=== PATIENT | female | born 1975 ===

== ENCOUNTER 2016-10-25 09:26 | Emergency (ER) | payer MEDICAID ==
[2016-10-25 09:34] VITALS: BMI 30.2
[2016-10-25 09:36] VITALS: BP 144/97; PULSE 97; RESP 19; TEMP 99; O2SAT 100
[2016-10-25] MEDS ORDERED: Sodium Chloride 0.9% 500 ML IV SCH (10:45)
[2016-10-25 11:31] LABS: ALB/GLOB RATIO 1.2 (1.0-2.1); ALKALINE PHOSPHATASE 59 U/L (38-126); ALT/SGPT 26 U/L (9-52); AMYLASE 70 U/L (30-110); AST/SGOT 27 U/L (14-36); BILIRUBIN,TOTAL 0.7 mg/dl (0.2-1.3); BLOOD UREA NITROGEN 11 mg/dl (7-17); CARBON DIOXIDE 24 mmol/L (22-30); CHLORIDE 104 mmol/L (98-107); GFR AFRICAN-AMERICAN > 60; GLUCOSE,RANDOM 91 mg/dL (65-105); LIPASE 28 U/L (23-300); POTASSIUM 4.2 MMOL/L (3.6-5.0); SODIUM 138 mmol/l (132-148)
[2016-10-25 11:37] LABS: HEMATOCRIT 35.7 % (34.0-47.0); MEAN CELL VOLUME 85.3 fl (81.0-99.0); MEAN CORPUSCULAR HEMOGLOBIN 28.2 pg (27.0-31.0); RED CELL DISTRIBUTION WIDTH 15.3 % (11.5-14.5); WHITE BLOOD COUNT 9.7 K/uL (4.8-10.8)
--- NOTE | 2016-10-25 11:50 | ED PDOC ---
HPI: Abdomen Chief Complaint (Provider): Abdominal Pain History Per: Patient History/Exam Limitations: no limitations Onset/Duration Of Symptoms: Days Outside of [place] travel?: No Current Symptoms Are (Timing): Still Present Context: Food Severity: Moderate Pain Scale Rating Of: 3 Location Of Pain/Discomfort: Epigastric Quality Of Discomfort: Burning Associated Symptoms: Nausea. denies: Vomiting Exacerbating Factors: Food Alleviating Factors: None Last Bowel Movement: Yesterday Abnormal Vaginal Bleeding: No <Matias Seymour - Last Filed: 10/25/16 12:31> <Terrie Lobato - Last Filed: 10/25/16 12:38> Time Seen by Provider: 10/25/16 09:57 Chief Complaint (Nursing): Abdominal Pain Additional Complaint(s): Pt. here today for evaluation of abdominal pain localized to epigastric area. Pain started yesterday afternoon at approximately 2pm after the patient had a meal consisting of meat. Pt. reports pain was 7/10, sharp, and not radiating. Pt. states pain persisted in the evening and decided to take her pain medication for her back which she cannot recall the name of at this time. Pt. reports pain improved a little bit but when she woke up this morning the pain was still present and drank orange juice which did not help, subsequently decided to come to the E.R. because of worsening and persistent pain after dropping her son off at school. On ROS, pt. denies any headache, chest pain, dyspnea, hemoptysis, hematemesis, melena, fever, chills, night sweats, dysuria, hematuria, or vaginal bleeding. Pt. reports LMP on October 17 to October 23. Pt. Pharmacy [facility] called and patient currently on Ventolin, Voltaren 75mg, Cyclobenzaprine 10mg, Advair discus 250, and Lipitor 10mg. Pt. at this time reports pain level is 3. (Matias Seymour) Supervising Attending Note <Matias Seymour - Last Filed: 10/25/16 12:31> - Supervising Attending Note The Documented history was done by the: Physician [employer] Form Placing Supervisor The documented physical exam was done by the: Physician Steel Pan Form Placing Supervisor The documented procedures were done by the: Physician Steel Pan Form Placing Supervisor - Attestation: I have personally seen and examined this patient.: Yes I have fully participated in the care of the patient.: Yes I have reviewed all pertinent clinical information: Yes <Terrie Lobato - Last Filed: 10/25/16 12:38> - Notes: Notes:: 41 yo female with recurrent epigastric pain. - labs - IVF - Pepcid Feels better after med, nontender exam. (Terrie Lobato) Past Medical History - Medical History PMH: Asthma, Hypercholesterolemia - Surgical History Surgical History: No Surg Hx - Family History Family History: States: Unknown Family Hx, Hypertension - Living Arrangements Living Arrangements: With Family - Social History Current smoker - smoking cessation education provided: No Ex-Smoker (has not smoked in the last 12 months): No Alcohol: Social Drugs: Denies - Immunization History Hx Tetanus Toxoid Vaccination: No Hx Influenza Vaccination: No Hx Pneumococcal Vaccination: No <LionMatias - Last Filed: 10/25/16 12:31> <Terrie Lobato - Last Filed: 10/25/16 12:38> Vital Signs: Last Vital Signs Temp 99 F 10/25/16 10:15 Pulse 97 H 10/25/16 10:15 Resp 19 10/25/16 10:15 BP 144/97 H 10/25/16 10:15 Pulse Ox 100 10/25/16 12:31 - Home Medications Home Medications: Ambulatory Orders Medication Instructions Recorded Albuterol 2 puff PO PRN PRN 05/25/13 Naproxen [Naprosyn] 1 tab PO BID PRN #25 tab 02/25/14 Albuterol 0.083% [Albuterol 3 ml IH Q6 PRN 11/14/14 Sulfate 3 Ml] Cyclobenzaprine HCl [Flexeril] 10 mg PO Q8 #15 tab 11/14/14 Ibuprofen [Motrin] 600 mg PO Q6 #30 tab 11/14/14 Famotidine [Pepcid] 20 mg PO HS #30 tab 02/07/15 Ibuprofen [Motrin] 600 mg PO Q6H #20 tab 02/07/15 Naproxen [Naprosyn Tab] 500 mg PO BID PRN #20 tab 05/27/15 Naproxen [Naprosyn] 500 mg PO Q12H #20 tab 07/28/15 Ciprofloxacin HCl [Cipro] 500 mg PO BID #14 tablet 12/22/15 Metronidazole [Flagyl] 500 mg PO TID #21 tablet 12/22/15 Albuterol HFA [Ventolin HFA 90 2 puff IH Q4H PRN #1 inh 03/03/16 mcg/actuation (8 g)] Omeprazole Magnesium [Prilosec Otc] 20 mg PO DAILY #30 tcp 03/03/16 Ondansetron ODT [Zofran ODT] 1 odt PO Q6 PRN #30 odt 03/03/16 Ibuprofen [Motrin Tab] 600 mg PO Q6 PRN #15 tab 05/22/16 Ondansetron [Zofran] 4 mg PO Q6H PRN #10 tab 05/22/16 Famotidine [Pepcid] 20 mg PO BID #10 tab 08/06/16 Famotidine [Pepcid] 20 mg PO BID #20 tab 10/25/16 - Allergies Allergies/Adverse Reactions: Allergies Allergy/AdvReac Type Severity Reaction Status Date / Time No Known Allergies Allergy Verified 10/25/16 10:15 Review of Systems Gastrointestinal: Positive for: Abdominal Pain (See HPI) <Matias Seymour - Last Filed: 10/25/16 12:31> Physical Exam - Reviewed Vital Signs Reviewed: Yes - Physical Exam Appears: Positive for: Non-toxic, No Acute Distress, Uncomfortable Eye Exam: Positive for: Normal appearance. Negative for: Scleral icterus Cardiovascular/Chest: Positive for: Regular Rate, Rhythm. Negative for: Murmur Respiratory: Positive for: Normal Breath Sounds. Negative for: Respiratory Distress Gastrointestinal/Abdominal: Positive for: Soft, Tenderness (+Epigastric Tenderness) Back: Negative for: L CVA Tenderness, R CVA Tenderness Extremity: Negative for: Tenderness, Pedal Edema <Matias Seymour - Last Filed: 10/25/16 12:31> - Laboratory Results Result Diagrams: 10/25/16 11:13 10/25/16 11:13 - ECG ECG: Positive for: Viewed By Me (Normal Sinus Rhythm) O2 Sat by Pulse Oximetry: 100 - Progress Re-evaluation Time: 12:00 Condition: Improved <Matias Seymour - Last Filed: 10/25/16 12:31> - Laboratory Results Result Diagrams: 10/25/16 11:13 10/25/16 11:13 <Terrie Lobato - Last Filed: 10/25/16 12:38> - Progress ED Course And Treament: Patient given I.V. Fluids and Pepcid 20mg I.V. (Matias Seymour) Medical Decision Making <Rik Seymourf - Last Filed: 10/25/16 12:31> <Terrie Lobato - Last Filed: 10/25/16 12:38> Medical Decision Makin y.o. female with epigastric pain which she has had in the past greatly improved with I.V. Fluids and I.V. Pepcid now significantly improved with normal labs and stable for discharge to home with follow up with PMD Dr. Eduin malloy and referal to GI Dr. Pickard. Pt. given E.R. precautions to return of pain returns or worsens. (Matias Seymour) Disposition - Patient ED Disposition Is Patient to be Admitted: No Discussed With : Terrie Lobato - Disposition Disposition: Routine/Home Disposition Time: 12:00 <Matias Seymour - Last Filed: 10/25/16 12:31> <Terrie Lobato - Last Filed: 10/25/16 12:38> - Clinical Impression Clinical Impression: Gastritis - Disposition Referrals: Dionte Pickard MD [Staff Provider] - Condition: GOOD Prescriptions: Famotidine [Pepcid] 20 mg PO BID #20 tab Instructions: Gastritis (ED)
--- NOTE | 2016-10-26 12:52 | CARD ---
APPROVED REPORT EKG Measurement Heart [id number] <Conclusion> Normal sinus rhythm Normal ECG
== END 2016-10-25 12:39 | disposition home or self-care (01) ==
LOC: H.ER 09:26
DX: K29.70 Gastritis, unspecified, without bleeding (principal); E78.00 Pure hypercholesterolemia, unspecified; J45.909 Unspecified asthma, uncomplicated; Z87.891 Personal history of nicotine dependence

== ENCOUNTER 2017-06-18 09:23 | Emergency (ER) | payer MEDICAID ==
[2017-06-18 09:24] VITALS: BMI 30.2
[2017-06-18 09:39] VITALS: RESP 21; O2SAT 98
[2017-06-18] MEDS ORDERED: Sodium Chloride 0.9% 1,000 ML IV STA (11:24)
[2017-06-18 12:45] LABS: BASO # 0.1 K/uL (0.0-0.2); BASO % 0.7 % (0.0-2.0); EOS # 0.2 K/uL (0.0-0.7); EOS % 1.8 % (0.0-4.0); HEMOGLOBIN 12.3 g/dL (12.0-16.0); LYMPH # 2.5 K/uL (1.0-4.3); LYMPH % 24.1 % (20.0-40.0); MEAN CELL VOLUME 83.8 fl (81.0-99.0); MEAN CORPUSCULAR HEMOGLOBIN 26.9 pg (27.0-31.0); MEAN CORPUSCULAR HGB CONC 32.1 g/dL (33.0-37.0); MEAN PLATELET VOLUME 8.5 fl (7.2-11.7); MONO # 0.7 K/uL (0.0-0.8); MONO % 6.3 % (0.0-10.0); NEUT % 67.1 % (50.0-75.0); NRBC % 0.1 % (0.0-0.0); RBC 4.56 Mil/uL (3.80-5.20); RED CELL DISTRIBUTION WIDTH 16.2 % (11.5-14.5); WHITE BLOOD COUNT 10.4 K/uL (4.8-10.8)
[2017-06-18 12:47] LABS: ALBUMIN 4.5 g/dL (3.5-5.0); ALT/SGPT 47 U/L (9-52); AST/SGOT 32 U/L (14-36); BLOOD UREA NITROGEN 12 mg/dl (7-17); CALCIUM 9.3 mg/dL (8.4-10.2); GFR AFRICAN-AMERICAN > 60; GFR NON-AFRICAN AMERICAN > 60; LIPASE 48 U/L (23-300)
[2017-06-18 12:52] LABS: SQUAMOUS EPITHIAL 5 /hpf (0-5); URINE BACTERIA RARE (<OCC); URINE BILIRUBIN NEGATIVE (NEGATIVE); URINE BLOOD NEGATIVE (NEGATIVE); URINE CLARITY SLIGHTY-CLOUDY (Clear); URINE COLOR YELLOW (YELLOW); URINE GLUCOSE (UA) NEG (Normal); URINE LEUKOCYTE ESTERASE TRACE Leu/uL (Negative); URINE NITRATE NEGATIVE (NEGATIVE); URINE PROTEIN NEGATIVE (NEGATIVE); URINE UROBILINOGEN 0.2-1.0 mg/dL (0.2-1.0)
[2017-06-18 12:56] LABS: ALB/GLOB RATIO 1.2 (1.0-2.1)
--- NOTE | 2017-06-18 13:26 | US ---
HISTORY: epigastric abdominal pain COMPARISON: 08/06/2016 TECHNIQUE: Sonographic evaluation of the abdomen. FINDINGS: LIVER: Measures 16.2 cm. Borderline increased echogenicity of the liver parenchyma. No mass. No intrahepatic bile duct dilatation. GALLBLADDER: Unremarkable. No gallstones. COMMON BILE DUCT: Measures 2.7 mm. No stones. No dilatation. PANCREAS: Unremarkable as visualized. No mass. No ductal dilatation. RIGHT KIDNEY: Measures 9.7 x 6.1 x 4.2cm. Normal echogenicity. No calculus, mass, or hydronephrosis. LEFT KIDNEY: Measures 9.5 x 4.8 x 5.1cm. Normal echogenicity. No calculus, mass, or hydronephrosis. SPLEEN: Normal in size and contour. No mass. AORTA: No aneurysmal dilatation. IVC: Unremarkable. OTHER FINDINGS: None. IMPRESSION: Recurrent liver mid size is greater than that before this could still be technical. Nevertheless no hepatomegaly threshold reached. Overall echogenicity appears borderline increased. Minimal fatty infiltration not excluded. No dilated ducts are liver masses suggested Unremarkable appearing gallbladder and pancreas
--- NOTE | 2017-06-18 13:47 | ED PDOC ---
HPI: General Adult Time Seen by Provider: 06/18/17 10:39 Chief Complaint (Nursing): Abdominal Pain History Per: Patient Additional Complaint(s): Pt. states for the past week she's had abdominal pain associated with nausea and multiple episode of non-bloody vomiting. Further states she has a hx of gastritis. Pt. was seen by Dr. Pickard earlier today and was prescribed Pepcid without relief. Denies fever, chest pain, hematemesis, previous abdominal surgeries, diarrhea, melena, hematochezia, BRBPR. Past Medical History Reviewed: Historical Data, Nursing Documentation, Vital Signs Vital Signs: Last Vital Signs Temp 96.9 F L 06/18/17 10:04 Pulse 93 H 06/18/17 10:04 Resp 21 06/18/17 10:04 BP 153/97 H 06/18/17 10:04 Pulse Ox 98 06/18/17 13:48 - Medical History PMH: Asthma, Hypercholesterolemia - Family History Family History: States: Hypertension - Immunization History Hx Tetanus Toxoid Vaccination: No Hx Influenza Vaccination: No Hx Pneumococcal Vaccination: No - Home Medications Home Medications: Ambulatory Orders Medication Instructions Recorded Albuterol 2 puff PO PRN PRN 05/25/13 Naproxen [Naprosyn] 1 tab PO BID PRN #25 tab 02/25/14 Albuterol 0.083% [Albuterol 3 ml IH Q6 PRN 11/14/14 Sulfate 3 Ml] Cyclobenzaprine HCl [Flexeril] 10 mg PO Q8 #15 tab 11/14/14 Ibuprofen [Motrin] 600 mg PO Q6 #30 tab 11/14/14 Famotidine [Pepcid] 20 mg PO HS #30 tab 02/07/15 Ibuprofen [Motrin] 600 mg PO Q6H #20 tab 02/07/15 Naproxen [Naprosyn Tab] 500 mg PO BID PRN #20 tab 05/27/15 Naproxen [Naprosyn] 500 mg PO Q12H #20 tab 07/28/15 Ciprofloxacin HCl [Cipro] 500 mg PO BID #14 tablet 12/22/15 Metronidazole [Flagyl] 500 mg PO TID #21 tablet 12/22/15 Albuterol HFA [Ventolin HFA 90 2 puff IH Q4H PRN #1 inh 03/03/16 mcg/actuation (8 g)] Omeprazole Magnesium [Prilosec Otc] 20 mg PO DAILY #30 tcp 03/03/16 Ondansetron ODT [Zofran ODT] 1 odt PO Q6 PRN #30 odt 03/03/16 Ibuprofen [Motrin Tab] 600 mg PO Q6 PRN #15 tab 05/22/16 Ondansetron [Zofran] 4 mg PO Q6H PRN #10 tab 05/22/16 Famotidine [Pepcid] 20 mg PO BID #10 tab 08/06/16 Famotidine [Pepcid] 20 mg PO BID #20 tab 10/25/16 Ondansetron ODT [Zofran ODT] 4 mg PO TID #21 odt 06/18/17 Ranitidine HCl [Zantac] 150 mg PO DAILY PRN #20 tablet 06/18/17 - Allergies Allergies/Adverse Reactions: Allergies Allergy/AdvReac Type Severity Reaction Status Date / Time No Known Allergies Allergy Verified 06/18/17 10:03 Review of Systems ROS Statement: Except As Marked, All Systems Reviewed And Found Negative Gastrointestinal: Positive for: Nausea, Vomiting, Abdominal Pain Physical Exam - Reviewed Nursing Documentation Reviewed: Yes Vital Signs Reviewed: Yes - Physical Exam Appears: Positive for: Well, Non-toxic, No Acute Distress Head Exam: Positive for: ATRAUMATIC, NORMAL INSPECTION, NORMOCEPHALIC Skin: Positive for: Normal Color, Warm. Negative for: Rash Eye Exam: Positive for: Normal appearance Cardiovascular/Chest: Positive for: Regular Rate, Rhythm Respiratory: Positive for: CNT, Normal Breath Sounds Gastrointestinal/Abdominal: Positive for: Normal Exam, Bowel Sounds, Soft. Negative for: Tenderness, Organomegaly Back: Positive for: Normal Inspection Extremity: Positive for: Normal ROM Neurologic/Psych: Positive for: Alert, Oriented - Laboratory Results Result Diagrams: 06/18/17 12:23 06/18/17 12:23 - ECG O2 Sat by Pulse Oximetry: 98 - Progress ED Course And Treament: Labs ordered. Abd US ordered 1348 Abd US: unremarkable gallbladder and pancreas. Disposition - Clinical Impression Clinical Impression: Gastritis - Patient ED Disposition Is Patient to be Admitted: No - Disposition Referrals: Dionte Pickard MD [Staff Provider] - Disposition: Routine/Home Disposition Time: 13:55 Condition: IMPROVED Prescriptions: Ondansetron ODT [Zofran ODT] 4 mg PO TID #21 odt Ranitidine HCl [Zantac] 150 mg PO DAILY PRN #20 tablet PRN Reason: abdominal pain Instructions: Gastritis (ED) Forms: [email or web address] [facility] (Divehi) Print Language: AMHARIC
[2017-06-18 14:42] VITALS: BP 142/84; PULSE 80; TEMP 97.8
--- NOTE | 2017-06-20 18:40 | CARD ---
APPROVED REPORT EKG Measurement Heart [id number] <Conclusion> Normal sinus rhythm Normal ECG
== END 2017-06-18 14:00 | disposition home or self-care (01) ==
LOC: H.ER 09:23
DX: K29.70 Gastritis, unspecified, without bleeding (principal); E78.00 Pure hypercholesterolemia, unspecified; J45.909 Unspecified asthma, uncomplicated
CPT/HCPCS: 76700; 80053; 81003; 81025; 83690; 85025; 93005; 96374; 96375; 99283; J2405; J7040

== ENCOUNTER 2018-02-23 00:53 | Emergency (ER) | payer MEDICAID ==
[2018-02-23 00:53] VITALS: BMI 30.2
[2018-02-23 01:32] VITALS: TEMP 98.2
[2018-02-23] MEDS ORDERED: Silver Sulfadiazine 1% CREAM (50 gm) TOP STA (02:43)
[2018-02-23] MEDS ORDERED: Silver Sulfadiazine 1% CREAM (50 gm) ONE (03:09)
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
[2018-02-23 05:35] VITALS: BP 138/90; PULSE 82; RESP 18; O2SAT 99
== END 2018-02-23 04:45 | disposition home or self-care (01) ==
LOC: H.ER 00:53
DX: Z77.098 Contact with and (suspected) exposure to other hazardous, chiefly nonmedicinal, chemicals (principal)

== ENCOUNTER 2018-09-25 21:58 | Emergency (ER) | payer MEDICAID ==
[2018-09-25 21:58] VITALS: BMI 32.1
[2018-09-25] MEDS ORDERED: Sodium Chloride 0.9% 1,000 ML IV STA (22:49)
--- NOTE | 2018-09-25 23:15 | ED PDOC ---
HPI: Abdomen Time Seen by Provider: 09/25/18 22:40 Chief Complaint (Nursing): Abdominal Pain Chief Complaint (Provider): Abdominal Pain History Per: Patient History/Exam Limitations: no limitations Onset/Duration Of Symptoms: Days (x6) Current Symptoms Are (Timing): Constant Severity: Moderate (to severe) Location Of Pain/Discomfort: Other (Lower abdominal pain) Associated Symptoms: denies: Urinary Symptoms, Other (Flank pain) Additional Complaint(s): 43 years old female with history of asthma and ovarian cyst presents to ER for evaluation of moderate to severe abdominal pain onset 6 days ago. Patient reports on last Friday she developed abdominal pain that reminded her with pr evious ovarian cysts and went to [facility] the following day where she had workup and US that did not reveal ovarian cyst. She states she was discharged with Macrobid and Tylenol but still have pain since then. Patient reports she has an ongoing menstrual period since the beginning of August but states she it is usually normal every month. She states she uses one menstrual pad every 1 to 2 hours. Patient denies urinary symptoms or flank pain. PMD: Shaik Solares Abnormal Vaginal Bleeding: Yes Past Medical History Reviewed: Historical Data, Nursing Documentation, Vital Signs Vital Signs: Last Vital Signs Temp 100.7 F H 09/25/18 22:18 Pulse 130 H 09/25/18 22:18 Resp 16 09/25/18 22:18 BP 152/104 H 09/25/18 22:18 Pulse Ox 100 09/25/18 22:18 Primary Care Provider: Shaik Solares - Medical History PMH: Asthma, Gastritis, Hypercholesterolemia Denies: Chronic Kidney Disease - Surgical History Surgical History: No Surg Hx - Family History Family History: States: Unknown Family Hx, Hypertension - Social History Current smoker - smoking cessation education provided: No Alcohol: None Drugs: Denies - Immunization History Hx Tetanus Toxoid Vaccination: No Hx Influenza Vaccination: Yes Hx Pneumococcal Vaccination: No - Home Medications Home Medications: Ambulatory Orders Medication Instructions Recorded Albuterol HFA 09/21/18 Nitrofurantoin Macrocrystals 1 cap PO BID #14 cap 09/21/18 [Macrobid] traMADol [Ultram] 50 mg PO TID #7 tab 09/21/18 Ciprofloxacin [Cipro] 500 mg PO Q12 #14 tab 09/26/18 Dicyclomine [Bentyl] 20 mg PO Q12 PRN #20 tab 09/26/18 metroNIDAZOLE [Flagyl] 500 mg PO Q12 #14 tab 09/26/18 - Allergies Allergies/Adverse Reactions: Allergies Allergy/AdvReac Type Severity Reaction Status Date / Time No Known Allergies Allergy Verified 09/25/18 22:19 Review of Systems ROS Statement: Except As Marked, All Systems Reviewed And Found Negative Gastrointestinal: Positive for: Abdominal Pain (Lower). Negative for: Other (Flank pain) Physical Exam - Reviewed Nursing Documentation Reviewed: Yes Vital Signs Reviewed: Yes - Physical Exam Appears: Positive for: Well, No Acute Distress Head Exam: Positive for: ATRAUMATIC, NORMOCEPHALIC Skin: Positive for: Normal Color, Warm, Dry Eye Exam: Positive for: Normal appearance, EOMI, PERRL Neck: Positive for: Normal, Painless ROM, Supple Cardiovascular/Chest: Positive for: Regular Rate, Rhythm. Negative for: Murmur Respiratory: Positive for: Normal Breath Sounds. Negative for: Respiratory Distress Gastrointestinal/Abdominal: Positive for: Tenderness (Lower) Back: Positive for: Normal Inspection. Negative for: L CVA Tenderness, R CVA Tenderness Extremity: Positive for: Normal ROM. Negative for: Pedal Edema, Deformity Neurological/Psych: Positive for: Awake, Alert, Oriented (x3) - Laboratory Results Result Diagrams: 09/25/18 23:58 09/25/18 23:58 - ECG O2 Sat by Pulse Oximetry: 100 (RA) Pulse Ox Interpretation: Normal Medical Decision Making Medical Decision Making: Time: 2247 Initial Impression: 43 years old female presents with lower abdominal pain insetting of heavy menstrual period Initial Plan: --CT Abdomen/Pelvis --EKG --CMP --Lactic Acid --Lipase --Urine --Urine dipstick --CBC --PTT --PT --Morphine --Urinalysis 0124 Transvaginal US Findings: The uterus measures 8.1x4.6x5.5 cm. Endometrium measures 8 mm in its thickness. Intrauterine device is noted in place. Normal left ovary measuring 2.5x2.1x1.1 cm with follicles. Right ovary measures 2.7x2.8x1.5 cm with a 1.1 cm follicle/cyst. Bilateral ovarian flow. Impression: Intrauterine device is in good position. 0145 CT Abdomen/Pelvis Findings: Mild cardiomegaly. Enlarged fatty liver. Mild diffuse thickening of the bladder, probably mild cystitis. Mild changes of pelvic congestion syndrome. Chronic diverticulosis. Mild thickening of the sigmoid and descending colon, probably mild uncomplicated colitis. Unremarkable intrauterine device. There is no intra or extrahepatic biliary ductal dilatation. The spleen is normal. The gallbladder is within normal limits. The pancreas is of normal contour and attenuation characteristics. There is no evidence of adrenal mass. Both kidneys demonstrate prompt and equal nephrograms. The kidneys are normal in size, shape and configuration. There is no evidence of renal or ureteral mass. No renal or ureteral calculi are identified. There is no hydroureter or hydronephrosis. No evidence for appendicitis. No evidence for small or large bowel obstruction. There is no evidence of abdominal ascites or lymphadenopathy. There is no evidence of intrinsic or extrinsic bladder mass. There is no pelvic ascites or lymphadenopathy. Images of the lung bases show no evidence of pleural or parenchymal mass. There are no pleural effusions. The bony structures are free of lytic or blastic lesions. IMPRESSION: Mild cardiomegaly. Enlarged fatty liver. Mild diffuse thickening of the bladder, probably mild cystitis. Mild changes of pelvic congestion syndrome. Chronic diverticulosis. Mild thickening of the sigmoid and descending colon, probably mild uncomplicated colitis. Unremarkable intrauterine device. 0216 Patient reports some improvement in symptoms. Patient's pain base on imaging may be related to colitis. Cipro, Tylenol and Flagyl order with additional IV fluids. 0550 Patient is afebrile, reports no pain at present time. There is resolution of her tachycardia. Patient is stable for discharge. Diagnosis: colitis Scribe Attestation: Documented by Clarice Smith, acting as a scribe for Marcelo Chaney MD. Provider Scribe Attestation: All medical record entries made by the Scribe were at my direction and personally dictated by me. I have reviewed the chart and agree that the record accurately reflects my personal performance of the history, physical exam, medical decision making, and the department course for this patient. I have also personally directed, reviewed, and agree with the discharge instructions and disposition. Disposition - Clinical Impression Clinical Impression: Colitis - Patient ED Disposition Is Patient to be Admitted: No - Disposition Disposition: Routine/Home Disposition Time: 05:50 Condition: STABLE Prescriptions: Ciprofloxacin [Cipro] 500 mg PO Q12 #14 tab Dicyclomine [Bentyl] 20 mg PO Q12 PRN #20 tab PRN Reason: abdominal pain/diarrhea metroNIDAZOLE [Flagyl] 500 mg PO Q12 #14 tab Instructions: Colitis Forms: [facility] (Icelandic)
[2018-09-26 00:06] LABS: SQUAMOUS EPITHIAL < 1 /hpf (0-5); URINE BILIRUBIN NEGATIVE (NEGATIVE); URINE BLOOD MODERATE (NEGATIVE); URINE CLARITY SLIGHTY-CLOUDY (Clear); URINE COLOR YELLOW (YELLOW); URINE GLUCOSE (UA) NEG (NEGATIVE); URINE LEUKOCYTE ESTERASE NEG Leu/uL (Negative); URINE PROTEIN NEGATIVE (NEGATIVE); URINE UROBILINOGEN 0.2-1.0 mg/dL (0.2-1.0)
[2018-09-26 00:15] LABS: BASO # 0.1 K/uL (0.0-0.2); BASO % 0.6 % (0.0-2.0); EOS % 0.1 % (0.0-4.0); HEMOGLOBIN 12.4 g/dL (12.0-16.0); LYMPH # 0.8 K/uL (1.0-4.3); MEAN CELL VOLUME 86.5 fl (81.0-99.0); MEAN CORPUSCULAR HEMOGLOBIN 28.3 pg (27.0-31.0); MEAN CORPUSCULAR HGB CONC 32.7 g/dL (33.0-37.0); MEAN PLATELET VOLUME 8.9 fl (7.2-11.7); MONO # 0.5 K/uL (0.0-0.8); MONO % 3.7 % (0.0-10.0); NEUT # 11.7 K/uL (1.8-7.0); NEUT % 89.6 % (50.0-75.0); PLATELET COUNT 277 K/uL (130-400); RBC 4.36 Mil/uL (3.80-5.20); RED CELL DISTRIBUTION WIDTH 15.1 % (11.5-14.5)
[2018-09-26 00:24] LABS: ALB/GLOB RATIO 1.2 (1.0-2.1); ALBUMIN 4.7 g/dL (3.5-5.0); ALT/SGPT 61 U/L (9-52); AST/SGOT 49 U/L (14-36); BLOOD UREA NITROGEN 10 mg/dl (7-17); CALCIUM 8.8 mg/dL (8.4-10.2); GFR NON-AFRICAN AMERICAN > 60; LIPASE 32 U/L (23-300)
[2018-09-26 00:25] LABS: INR 1.2; PROTHROMBIN TIME 14.1 Seconds (9.8-13.1)
[2018-09-26 00:27] LABS: PARTIAL THROMBOPLASTIN TIME 31.5 Seconds (25.6-37.1)
[2018-09-26] MEDS ORDERED: Iohexol 300 100 ML IJ ONE (00:54)
[2018-09-26] MEDS ORDERED: Sodium Chloride 0.9% 50 ML IV ONE (00:54)
[2018-09-26 01:31] LABS: LYMPHOCYTE 8 % (20-50); MONOCYTE 5 % (0-10); NEUTROPHIL 85 % (42-75); PLATELET ESTIMATE NORMAL (NORMAL)
[2018-09-26 01:32] LABS: BANDS 2 % (0-2); TOTAL CELLS COUNTED 100
[2018-09-26] MEDS ORDERED: metroNIDAZOLE 500mg/100ml NS 100 ML IVPB STA (02:16)
[2018-09-26] MEDS ORDERED: Sodium Chloride 0.9% 1,000 ML IV STA (02:16)
[2018-09-26] MEDS ORDERED: Ciprofloxacin 400mg/200ml D5W 400 MG/200 ML BAG IV STA (02:16)
[2018-09-26] MEDS ORDERED: Ciprofloxacin 400mg/200ml D5W 400 MG/200 ML BAG IVPB ONE (02:27)
[2018-09-26] MEDS ORDERED: metroNIDAZOLE 500mg/100ml NS 100 ML IVPB ONE (03:25)
[2018-09-26 03:33] VITALS: TEMP 100
[2018-09-26 07:26] VITALS: BP 153/98; PULSE 103; RESP 24; O2SAT 98
--- NOTE | 2018-09-26 11:45 | CARD ---
APPROVED REPORT Date of service: 09/26/2018 EKG Measurement Heart [id number] <Conclusion> Sinus tachycardia Left ventricular hypertrophy Abnormal ECG
--- NOTE | 2018-09-26 13:25 | CT ---
Date of service: 09/26/2018 PROCEDURE: CT abdomen and pelvis HISTORY: Lower abdominal pain COMPARISON: Comparison made with prior study dated 08/06/2016. TECHNIQUE: Contiguous axial images of the abdomen and pelvis performed following intravenous injection of approximately 95 cc of Omnipaque 300 contrast material. Additional 2D sagittal and coronal reformats generated. Radiation dose: Total exam DLP = 454.27 mGy-cm. This CT exam was performed using one or more of the following dose reduction techniques: Automated exposure control, adjustment of the mA and/or kV according to patient size, and/or use of iterative reconstruction technique. FINDINGS: LOWER THORAX: Mild passive/dependent type atelectasis both posterior lower lung estrada right greater than left. There appears to be some minimal linear scarring left lingular region as well. No evidence of effusion or basilar pneumothorax. Heart size is mildly enlarged. No significant pericardial effusion. Small hiatal hernia LIVER: Liver exhibits normal size. Mild to moderate diffuse fatty hepatic infiltration. No obvious hepatic mass collection or calcification. Portal and splenic veins are opacified. GALLBLADDER AND BILE DUCTS: Unremarkable. PANCREAS: Unremarkable. No mass. No ductal dilatation. SPLEEN: Unremarkable. No splenomegaly. There is a small splenule seen adjacent to the anterior inferior main body of the spleen. ADRENALS: No adrenal lesions. KIDNEYS AND URETERS: Kidneys demonstrate relatively symmetric size. No evidence of nephrolithiasis or hydronephrosis. BLADDER: Urinary bladder incompletely distended with slight thick-walled appearance. Correlation with urinalysis to exclude cystitis. REPRODUCTIVE: In situ copper T IUD. Slight increased vascularity about the uterus left greater than right; rule out underlying pelvic congestion syndrome. Suspect small amount of free fluid in the cul de sac possibly associate with a small adnexal cyst. Prominent left ovarian follicular cysts or small simple cysts. Pelvic ultrasound could performed for further evaluation. APPENDIX: The appendix is not positively identified on this exam however no evidence of acute appendicitis BOWEL: Evaluation of the bowel is slightly limited due to the lack of oral contrast material. Stomach is partially distended with food debris liquid and air. The visualized loops of small bowel exhibit normal contour and caliber. No evidence of acute mechanical small bowel obstruction. There are scattered colonic diverticula however no radiographic evidence of acute diverticulitis.. There is apparent collapse of the descending and transverse colon which in part accounts for slight thick-walled appearance. Differential diagnosis would include mild submucosal fat deposition due to chronic diverticulitis however the possibility of mild colitis not completely excluded PERITONEUM: No free intraperitoneal air. Suspect small amount of free fluid in the cul de sac possibly associate with a small adnexal cyst. Pelvic ultrasound could performed for further evaluation congestion syndrome. Small fat containing umbilical hernia. LYMPH NODES: There are few scattered nonspecific mesenteric lymph nodes; rule out mild mesenteric adenitis. VASCULATURE: Unremarkable. No aortic aneurysm. No aortic atherosclerotic calcification or mural plaque present. BONES: There is a mild dextroscoliosis centered in the mid to lower lumbar region.. Vertebral bodies otherwise exhibit normal alignment. Vertebral bodies exhibit normal stature. OTHER FINDINGS: None. IMPRESSION: Fatty infiltration. Diverticulosis without definitive radiographic evidence of acute diverticulitis. Note made of mild wall thickening of the descending and sigmoid colon part due to incomplete distension and possibly peristalsis as well as unopacified stool however submucosal fat deposition and/or mild colitis cannot be completely excluded. Appendix is not positively identified however no definitive radiographic evidence of acute diverticulitis Small amount of free fluid felt be present within the cul de sac possibly associate with a small adnexal cyst. There appears to be prominent prominent left ovarian follicular cysts or small simple cyst pelvic ultrasound follow-up could be performed further evaluation. Findings also suggest pelvic congestion syndrome. In situ IUD. Note this report was placed in [facility] review folder for follow up
--- NOTE | 2018-09-26 15:26 | US ---
date of service: 09/26/2018 HISTORY: Pelvic pain, menorrhagia comparison made with prior pelvic ultrasound 08/06/2016. COMPARISON: TECHNIQUE: Transabdominal/transvaginal sonographic evaluation of the pelvis performed. FINDINGS: UTERUS: Measures cm. Normal in size and appearance. No fibroid or other mass lesion seen. ENDOMETRIUM: Measures 8 mm in diameter. Unremarkable. In situ echogenic IUD CERVIX: No cervical abnormality identified. RIGHT OVARY: Measures 2.7 x 1.5 x 2.8 cm. No solid mass. Normal flow. Multiple follicular cysts are present, the largest measuring approximately 1.1 cm-possibly representing a small simple cyst LEFT OVARY: Measures 2.5 x 2.1 x 1.9 cm. No solid mass. Normal flow. Small follicular cysts are present FREE FLUID: No significant free fluid noted. OTHER FINDINGS: None. IMPRESSION: In situ IUD. Multiple bilateral follicular cysts the largest on the right side measuring 1.1 cm possibly representing small simple cyst
== END 2018-09-26 08:17 | disposition home or self-care (01) ==
LOC: H.ER 21:58
DX: K52.9 Noninfective gastroenteritis and colitis, unspecified (principal); J45.909 Unspecified asthma, uncomplicated; N94.89 Other specified conditions associated with female genital organs and menstrual cycle; Z79.899 Other long term (current) drug therapy; N92.0 Excessive and frequent menstruation with regular cycle; Z96.5 Presence of tooth-root and mandibular implants; Z97.5 Presence of (intrauterine) contraceptive device
CPT/HCPCS: 74177; 76830; 80053; 81003; 81025; 83605; 83690; 85025; 85610; 85730; 87040; 93005; 96360; 96374; 99284; J0744; J2270; J2405; J7030; Q9967